=== PATIENT | female | born 1970 ===

== ENCOUNTER → 2022-12-30 10:11 | Outpatient (CLI) | payer OTHER, SELFPAY ==
--- NOTE | 2022-12-30 | DI.MG.S_ITS ---
BILATERAL DIGITAL DIAGNOSTIC MAMMOGRAM 3D/2D: 12/30/2022 CLINICAL: Breast lump. Comparison is made to exams dated: 04/02/2022 mammogram, 08/06/2020 mammogram, and 04/21/2012 mammogram - [facility]. There are scattered areas of fibroglandular density in both breasts (category b / 25%-50% glandular tissue). There is a 6 mm oval high density asymmetry with an indistinct margin in the right breast at 3 o'clock in the retroareolar region. This correlates as palpated. There also is an irregular asymmetry in the right breast at 7 o'clock anterior depth. This is not significantly changed and possibly correlates as physician palpated finding. No other significant masses, calcifications, or other findings are seen in either breast. IMPRESSION: INCOMPLETE: NEEDS ADDITIONAL IMAGING EVALUATION The 6 mm oval high density asymmetry in the right breast at 3 o'clock in the retroareolar region correlates as palpated and is indeterminate. The irregular asymmetry in the right breast at 7 o'clock anterior depth is not significantly changed and probably is fibroglandular tissue but remains indeterminate if newly palpable. An ultrasound is recommended for both these areas. This was performed immediately following this exam. Based on the Tyrer Cuzick model (a risk assessment model) the patient's lifetime risk is 11.6% and her 10 year risk is 3.4%. According to the ACR, ACS, and NCCN guidelines, an annual breast MRI exam along with mammogram is recommended if the patient's lifetime risk is 20% or greater. This exam was interpreted at Station ID: [id number]. NOTE: For mammograms, a report in lay terms will be sent to the patient. Approximately 15% of breast malignancies will not be visualized mammographically. In the management of a palpable breast mass, a negative mammogram must not discourage biopsy of a clinically suspicious lesion. Electronically Signed By: Ericka camarena/:12/30/2022 15:59:36 ACR BI-RADS Category 0: Incomplete 3340F
--- NOTE | 2022-12-30 | DI.US.S_ITS ---
LIMITED ULTRASOUND OF RIGHT BREAST: 12/30/2022 CLINICAL: Palpable right breast lumps felt by patient and provider. Comparison is made to exams dated: 12/30/2022 mammogram - [facility], 04/02/2022 mammogram, 08/06/2020 mammogram, 04/21/2012 mammogram, and 01/26/2008 mammogram - [facility]. Color flow ultrasound of the right breast 6-7 o'clock, and retroareolar regions was performed. Ribeiro scale images of the real-time examination were reviewed. There is a 0.8 cm x 0.7 cm x 0.3 cm oval intradermal complicated cyst in the right breast at 2 o'clock anterior depth 1 cm from the nipple. This correlates as palpated and with mammography findings. Color flow imaging demonstrates that there is no vascularity present. No sonographic finding to correspond to the patient's 7:00 palpable abnormality. IMPRESSION: PROBABLY BENIGN The 0.8 cm x 0.7 cm x 0.3 cm oval complicated cyst in the right breast is most consistent with an intradermal Parmar gland sebaceous cyst and is benign. There is no abnormality seen in the right breast to correspond with the palpable abnormality and stable mammographic asymmetry at 7 o'clock which is consistent with normal fibroglandular tissue. A follow-up right ultrasound in 6 months is recommended to demonstrate stability. Findings and recommendations were conveyed to the patient at time of exam. This exam was interpreted at Station ID: [id number]. Electronically Signed By: Ericka camarena/:12/30/2022 16:08:27 letter sent: Followup Recommended Ultrasound BI-RADS: 3 Probably benign
== END ==
PROVIDERS: PCP Physician Assistant; Referring Provider Physician Assistant; Visit Provider Physician Assistant
DX: R92.8 Other abnormal and inconclusive findings on diagnostic imaging of breast (principal); N60.01 Solitary cyst of right breast
CPT/HCPCS: 76642; 77066; G0279